=== PATIENT | female | born 2000 | race Caucasian/White ===

== ENCOUNTER 2019-11-14 02:48 | Emergency (ER) | payer BC ==
[~2019-11-14] VITALS: Ht 167.6 cm; Wt 81.8 kg
[2019-11-14 03:39] VITALS: BP 138/86; PULSE 89; TEMP 97.6
== END 2019-11-14 03:50 | disposition home or self-care (01) ==
LOC: COL.ER 02:48
DX: L02.416 Cutaneous abscess of left lower limb (principal)